=== PATIENT | female | born 2000 | race Two or more races ===

== ENCOUNTER 2022-05-13 19:36 | Emergency (ER) | payer MEDICAID, OTHER ==
[~2022-05-13] VITALS: Ht 160 cm; Wt 81.1 kg
[2022-05-13 22:21] VITALS: BP 110/65
== END 2022-05-13 22:21 | disposition home or self-care (01) ==
LOC: ER 19:42
DX: S50.12XA Contusion of left forearm, initial encounter (principal); Z88.8 Allergy status to other drugs, medicaments and biological substances; V49.9XXA Car occupant (driver) (passenger) injured in unspecified traffic accident, initial encounter; Y93.01 Activity, walking, marching and hiking; Y92.410 Unspecified street and highway as the place of occurrence of the external cause; Y99.8 Other external cause status